=== PATIENT | female | born 1965 | race Two or more races ===

== ENCOUNTER 2018-04-11 21:07 | Emergency (ER) | payer BC ==
[~2018-04-11] VITALS: Ht 160 cm; Wt 83.9 kg
[2018-04-11 21:25] VITALS: BP 136/80
--- NOTE | 2018-04-11 21:25 | NUR ---
ED Nurse Note: pt walked in c/o left leg pain s/p dog bite, pt states she works at [employer] and one of the customer dog bit her and ran away, and it was pitbull but unknown if dog was vaccinated. pt AA&ox4, gcs=15, skin warm and dry, resp even and unlabored, no fever at this time, noted skin scab and bite jose with contusion on left lateral thigh. will cont monitor.
--- NOTE | 2018-04-11 21:40 | Emergency Room Report ---
History of Present Illness General Chief Complaint: Animal Bite Source: Patient Present Illness HPI Patient was bitten by dog. This happened just prior to arrival. The bite is in the left thigh area. There is no bleeding. She is uncertain when her last tetanus was. She is diabetic and also deaf. She is postmenopausal. She does have pain at this time. The pain is rated 7/10, burning and aching. The dog was domesticated. He denies any tingling. She is ambulating without difficulty. No fevers or chills. Allergies: Coded Allergies: No Known Allergies (Unverified , 04/11/18) Patient History Past Medical History: see triage record, DM, other - Deafness Social History: Denies: smoking, alcohol use Social History Narrative From home Now: No Reviewed Nursing Documentation: PMH: Agreed; PSxH: Agreed Nursing Documentation-PMH Past Medical History: No History, Except For Hx Diabetes: Yes Review of Systems Constitutional: Reports: see HPI Musculoskeletal: Reports: see HPI Skin: Reports: see HPI Neurological: Reports: see HPI Endocrine: Denies: increased thirst, increased urine Physical Exam Vital Signs Date Time Temp Pulse Resp B/P (MAP) Pulse Ox O2 Delivery O2 Flow Rate FiO2 04/11/18 21:19 98.2 64 12 146/86 96 Room Air General Appearance: well appearing, no apparent distress, GCS 15 Head: normocephalic, atraumatic Eyes: bilateral eye normal inspection, bilateral eye PERRL ENT: hearing grossly normal, normal voice, moist mucus membranes Neck: full range of motion, supple Respiratory: no respiratory distress, speaking full sentences Musculoskeletal: gait/station normal, normal range of motion, no calf tenderness Neurologic: alert, oriented x3, normal gait, other - Deaf, grossly normal Psychiatric: mood/affect normal Skin: other - Abrasions and bite jose without full skin puncture wound left upper thigh no active bleeding Medical Decision Making Diagnostic Impression: Primary Impression: Dog bite Qualified Codes: W54.0XXA - Bitten by dog, initial encounter ER Course Patient presents post dog bite. Antibiotics are indicated as well as tetanus. Also the patient will be given Motrin. Wound will be cleaned and topical antibiotic applied. Discussed treatment plan with patient. Patient stable for outpatient observation and treatment. Last Vital Signs Date Time Temp Pulse Resp B/P (MAP) Pulse Ox O2 Delivery O2 Flow Rate FiO2 04/11/18 22:30 98.7 87 16 128/67 100 Room Air Status: improved Disposition: HOME, SELF-CARE Condition: Improved Scripts Bacitracin (Bacitracin) 28.4 Gm Oint...g. 1 APPLIC TOPIC BID, #20 GM Prov: Daniel Velasquez MD 04/11/18 Ibuprofen* (MOTRIN*) 600 Mg Tablet 600 MG ORAL Q6H PRN for For Pain, #20 TAB Prov: Daniel Velasquez MD 04/11/18 Amoxicillin/Potassium Clav 500-125 Tablet* (AUGMENTIN 500-125 TABLET*) 1 Each Tablet 1 TAB ORAL THREE TIMES A DAY, #20 TAB Prov: Daniel Velasquez MD 04/11/18 Daniel Velasquez MD Apr 11, 2018 21:40
[2018-04-11] MEDS ORDERED: Bacitracin Oint UD TOPIC ONE (21:45)
[2018-04-11] MEDS ORDERED: Tetanus/Diptheria/Pertussis IM ONE (21:45)
--- NOTE | 2018-04-11 21:56 | NUR ---
ED Nurse Note: wound care done, no s/s infection, no drainage.
[2018-04-11] MEDS ORDERED: AUGMENTIN 500-1 EACH ORAL (22:16)
[2018-04-11] MEDS ORDERED: IBUPROFEN600 MG ORAL (22:16)
[2018-04-11] MEDS ORDERED: BACITRACIN15 GM TOPIC (22:16)
--- NOTE | 2018-04-11 22:20 | NUR ---
ED Nurse Note: pt cleared to be d/c per ERMD, pt discharge instruction provided w/ prescription, pt education done via discussion and hand out, pt advised to follow up with pcp or return to ED, pt verbalized understanding and agrees with plan, pt AA&ox4, gcs=15, resp even and unlabored, afebrile, ambulatory w/steady gait, pt left with all belongings.
[2018-04-11 22:30] VITALS: BP 128/67
== END 2018-04-12 01:59 | disposition home or self-care (01) ==
LOC: EMR 21:38
DX: S70.312A Abrasion, left thigh, initial encounter (principal); W54.0XXA Bitten by dog, initial encounter; Y92.9 Unspecified place or not applicable; Z23 Encounter for immunization; E11.9 Type 2 diabetes mellitus without complications
CPT/HCPCS: 90471; 90715; 99283